=== PATIENT | female | born 1975 | race Caucasian/White ===

== ENCOUNTER 2018-05-17 15:31 | Emergency (ER) | payer OTHER ==
[2018-05-17] MEDS ORDERED: ZOFRAN ODT 4 MG PO ONE (15:45)
[2018-05-17] MEDS ORDERED: MORPHINE SULFATE 2 MG INJ IM ONE ×2 (15:45→18:15)
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
[2018-05-17] MEDS ORDERED: MORPHINE SULFATE 2 MG INJ ONE ×2 (15:56→18:18)
[2018-05-17] MEDS ORDERED: ZOFRAN ODT 4 MG ONE (15:56)
[2018-05-17 18:28] VITALS: BP 95/66
[2018-05-17 18:50] VITALS: PULSE 78; O2SAT 99
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
== END 2018-05-17 19:34 | disposition home or self-care (01) ==
LOC: ED 15:31
DX: S00.83XA Contusion of other part of head, initial encounter (principal); R51 Headache; Y04.0XXA Assault by unarmed brawl or fight, initial encounter
CPT/HCPCS: 70450; 70486; 96372; 99284; J2270; Q0162